=== PATIENT | female | born 1930 | race Two or more races ===

== ENCOUNTER 2017-03-29 04:46 | Emergency (ER) | payer MEDICARE, OTHER ==
[~2017-03-29] VITALS: Ht 149.9 cm; Wt 61.7 kg
[2017-03-29 04:45] VITALS: BP 144/99
--- NOTE | 2017-03-29 04:45 | NUR ---
PLACED PT ON BIPAP PER MD'S ORDER. ALARMS CHECKED AND AUDIBLE. VENT PLUGGED INTO RED OUTLET. AMBU BAG AT BEDSIDE, ABG DONE . WILL CONTINUE TO MONITOR THE PATIENT.
--- NOTE | 2017-03-29 04:47 | NUR ---
TO BED 5 BIB PARAMEDICS C/O RESP DISTRESS W/ O2 SAT 78% ON RA, ON CPAP BY EMS RESERVOIR ENGINEERING CONSULTANT. O2 SAT 92% ON CPAP UPON ARRIVAL TO ER. PT AAOX4, PLACE PT ON CARDIAC MONITORING, CONTINUOUS POX. SKIN COOL, NONDIAPHORETIC. ER MD AT BEDSIDE TO EVAL PT WITH ORDERS RECEVED.
--- NOTE | 2017-03-29 04:47 | NUR ---
STARTED SL 18G TO RFA, BLOOD DRAWN AND SENT TO LAB.
[2017-03-29] MEDS ORDERED: NTG 50 MG/D5W250 ML BOTTL 250 ML IV ONE (04:49)
--- NOTE | 2017-03-29 04:50 | NUR ---
STARTED #2 SL ON THE LAC 20G. ER MD REMAINS AT BEDSIDE.
[2017-03-29] MEDS: NTG 50 MG/D5W250 ML BOTTL 250 ML IV ONE (04:55)
--- NOTE | 2017-03-29 04:55 | NUR ---
IV TITRATION STARTED L AC G20 2mcg/min
--- NOTE | 2017-03-29 04:58 | NUR ---
Note ricardo in EDM - 03/29/17 at 0558 by RYDER RT AT BEDSIDE TO PLACE PT ON BIPAP 26/08 RATE-
--- NOTE | 2017-03-29 04:59 | NUR ---
RT AT BEDSIDE TO PLACE PT ON BIPAP 20/10, RATE-16, FIO2 100%
--- NOTE | 2017-03-29 05:07 | NUR ---
IV TITRATION L AC G20 INCREASED TO 5mcg/min
--- NOTE | 2017-03-29 05:10 | NUR ---
OB Dr. Akhtar, mobile health vehicle operator on phone w/ Dr. Haas.
--- NOTE | 2017-03-29 05:11 | NUR ---
IV TITRATION L AC G20 INCREASED TO 10mcg/min
--- NOTE | 2017-03-29 05:12 | NUR ---
ER MD AT BEDSIDE TALKING TO PT FAMILY MEMBERS REGARDING PT CONDITION.
--- NOTE | 2017-03-29 05:15 | NUR ---
OBC to [place] for code STEMI, per Faina no CCT team available at this time. Fax facesheet w/ EKG to [phone] ATT: Fain[facility].
[2017-03-29 05:17] LABS: ABG BASE EXCESS -2.1 mmol/L; ABG OXYGEN SATURATION 99.2 % (92.0-98.5); ABG PCO2 42.9 mmHg (35.0-45.0); ABG PH 7.355 (7.350-7.450); ABG PO2 440.9 mmHg (75.0-100.0); AaDO2 229.2 mmHg; COHb 0.1 % (0.5-1.5); MetHb 0.5 % (0.0-1.5); O2Hb 98.6 % (94.0-97.0); SITE, ABG Right Radial
--- NOTE | 2017-03-29 05:18 | NUR ---
IV TITRATION L AC G20 INCREASED TO 15mcg/min
[2017-03-29 05:23] LABS: BASOPHILS % (AUTO) 0.3 % (0.0-2.0); EOSINOPHILS # (AUTO) 0.5 /CMM (0.0-0.7); EOSINOPHILS % (AUTO) 3.7 % (0.0-6.0); HEMATOCRIT 36 % (33-45); HEMOGLOBIN 11.6 g/dL (11.5-14.8); LYMPHOCYTES # (AUTO) 3.2 /CMM (0.8-4.8); LYMPHOCYTES % (AUTO) 21.6 % (20.0-44.0); MEAN CORPUSCULAR HEMOGLOBIN 26 PG (26.0-33.0); MEAN CORPUSCULAR HGB CONC 32 g/dl (31.0-36.0); MEAN CORPUSCULAR VOLUME 82 fL (82-100); MONOCYTES # (AUTO) 0.7 /CMM (0.1-1.30); MONOCYTES % (AUTO) 4.9 % (2.0-12.0); NEUTROPHILS # (AUTO) 10.2 /CMM (1.8-8.9); NEUTROPHILS % (AUTO) 69.5 % (43.0-81.0); PLATELET COUNT (AUTO) 253 /CMM (150-450); RDW COEFFICIENT OF VARIATION 14.7 (11.5-15.0); RED BLOOD CELL COUNT(AUTO) 4.42 MIL/uL (4.0-5.2); WHITE BLOOD COUNT (AUTO) 14.7 K/uL (4.3-11.0)
--- NOTE | 2017-03-29 05:28 | NUR ---
Lee at [facility] [phone] advised will contact newspaper correspondent.
--- NOTE | 2017-03-29 05:28 | NUR ---
IV TITRATION L AC G20 INCREASED TO 20mcg/min
--- NOTE | 2017-03-29 05:32 | NUR ---
BARRETT FLEMING TALKING TO DR. RODRÍGUEZ AT [facility] FOR STEMI HLOC TRANSFER.
--- NOTE | 2017-03-29 05:36 | NUR ---
911 CALLED FOR STEMI INTERFACILITY TRANSPORT TO [facility] FOR HLOC.
--- NOTE | 2017-03-29 05:36 | NUR ---
FAX FACESHEET & EKG TO [facility] [phone] ATT: DR. RODRÍGUEZ.
[2017-03-29] MEDS ORDERED: HEPARIN INFUSION/D5W 500 ML IV ONE (05:37)
[2017-03-29] MEDS ORDERED: HEPARIN SODIUM, PORCINE 5000 UNITS/1 ML VIAL ONE (05:37)
[2017-03-29 05:38] LABS: CALCIUM, SERUM 9.3 mg/dL (8.5-10.1); CARBON DIOXIDE 26 mmol/L (21-32); CHLORIDE 103 mmol/L (98-107); CREATININE 1.9 mg/dL (0.6-1.3); GLUCOSE 191 mg/dL (74-106); INR 0.94 (0.87-1.13); POTASSIUM 4.6 mmol/L (3.5-5.1); PROTHROMBIN TIME 9.8 SECS (9.5-12.7); SODIUM SERUM 139 mmol/L (136-145); UREA NITROGEN, BLOOD 41 mg/dL (7-18)
--- NOTE | 2017-03-29 05:38 | NUR ---
IV TITRATION L AC G20 INCREASED TO 25mcg/min
[2017-03-29] MEDS ORDERED: ACETAMINOPHEN 650 MG/SUPP.RECT RC ONE (05:41)
--- NOTE | 2017-03-29 05:45 | NUR ---
heparin calculations for bolus and drip confirmed by Reena Díaz RN.
[2017-03-29 05:46] LABS: TROPONIN I 1.586 ng/mL (0.00-0.056)
--- NOTE | 2017-03-29 05:46 | NUR ---
PARAMEDICS AT BEDSIDE FOR INTERFACILITY TRANSPORT.
[2017-03-29] MEDS: HEPARIN INFUSION/D5W 500 ML IV PRN (05:50)
[2017-03-29] MEDS: ACETAMINOPHEN 650 MG/SUPP.RECT RC ONE (05:51)
[2017-03-29 05:53] LABS: ALANINE AMINOTRANSFERASE 41 U/L (12-78); ALBUMIN 3.7 g/dL (3.4-5.0); ALKALINE PHOSPHATASE 115 U/L (46-116); ASPARTATE AMINOTRANSFERASE 50 U/L (15-37); B-TYPE NATRIURETIC PEPTIDE 17154 PG/ML (0-125); BILIRUBIN,DIRECT 0.1 mg/dL (0.0-0.2); BILIRUBIN,TOTAL 0.4 mg/dL (0.2-1.0); TOTAL PROTEIN, SERUM 7.5 g/dL (6.4-8.2)
--- NOTE | 2017-03-29 05:54 | NUR ---
IV TITRATION L AC G20 INCREASED TO 30mcg/min
[2017-03-29 05:59] VITALS: BP 121/63
--- NOTE | 2017-03-29 05:59 | NUR ---
IV TITRATION L AC G20 INCREASED TO 34mcg/min
[2017-03-29 06:03] LABS: BILIRUBIN,URINE NEGATIVE (NEGATIVE); BLOOD, URINE 1+ Ery/uL (NEGATIVE); COLOR,URINE YELLOW (YELLOW); KETONES,URINE NEGATIVE (NEGATIVE); LEUKOCYTE ESTERASE ,URINE NEGATIVE (NEGATIVE); NITRITE, URINE NEGATIVE (NEGATIVE); PROTEIN,URINE 2+ mg/dl (NEGATIVE); UGLUCOSE NEGATIVE (NEGATIVE); UROBILINOGEN,URINE 0.2 EU/dL (0.2)
[2017-03-29 06:15] LABS: APPEARANCE,URINE HAZY (CLEAR); BACTERIA,URINE Few /HPF (None Seen); SQUAMOUS EPITHELIAL CELL,UR Few /HPF (None Seen); WBC,URINE 0-2 /HPF (0-3)
[2017-03-29 06:16] LABS: URINE AMORPHOUS URATE Moderate /HPF (None Seen)
[2017-03-29] MEDS: AZITHROMYCIN 500 MG in IV D5W 250 ML IV ONE (06:21)
[2017-03-29] MEDS: CEFTRIAXONE 1GM BAG (ER ONLY) 50 ML IV ONE (06:21)
--- NOTE | 2017-03-29 06:21 | NUR ---
UNABLE TO ADMINISTER ZITHROMAX AND ROCEPHIN DUE TO PT TRANSFER FOR HIGHER LEVEL OF CARE FOR STEMI. DR. HARSHIL RAGLAND.
--- NOTE | 2017-04-14 03:35 | NUR ---
LATE ENTRY HEPARIN & NITRO DRIPS INFUSING ON TRANSFER; SEE eMAR FOR DOCUMENTATION ON AFORMENTIONED MEDICATIONS.
== END 2017-03-29 06:05 | disposition short-term general hospital (02) ==
LOC: ER 04:48
DX: I21.29 ST elevation (STEMI) myocardial infarction involving other sites (principal); J96.90 Respiratory failure, unspecified, unspecified whether with hypoxia or hypercapnia; I11.0 Hypertensive heart disease with heart failure; I50.9 Heart failure, unspecified; J18.9 Pneumonia, unspecified organism; N17.9 Acute kidney failure, unspecified
CPT/HCPCS: 36415; 36600 ×2; 51702; 71010; 80048; 80076; 81001; 82803; 83605; 83880; 84484; 85025; 85730; 87040 ×2; 87086; 93005; 96365; 96375; 99291; A4606; J1644 ×2; J3490; 81000-TC; Z7610